=== PATIENT | female | born 1950 | race Hispanic/Latino ===

== ENCOUNTER → 2023-05-10 | Outpatient (CLI) | payer OTHER, MEDICARE | END | disposition home or self-care (01) | LOC: SHCH 14:36 | PROVIDERS: ATTEND Internal Medicine Cardiovascular Disease | DX: I87.2 Venous insufficiency (chronic) (peripheral) (principal); I87.1 Compression of vein; I73.9 Peripheral vascular disease, unspecified | CPT/HCPCS: 93925; 93970 ==